=== PATIENT | male | born 1995 | race African-American/Black ===

== ENCOUNTER 2022-12-19 14:23 | Outpatient (AMB) | payer OTHER, SELFPAY ==
[2022-12-19 14:34] VITALS: BP 130/76; PULSE 86; O2SAT 98; BMI 40.2
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
== END 2022-12-19 15:22 | disposition home or self-care (01) ==
PROVIDERS: PCP Nurse Practitioner Family; Visit Provider Nurse Practitioner Family
DX: I82.409 Acute embolism and thrombosis of unspecified deep veins of unspecified lower extremity (principal); Z00.00 Encounter for general adult medical examination without abnormal findings; F41.9 Anxiety disorder, unspecified; F32.A Depression, unspecified
CPT/HCPCS: 99385

== ENCOUNTER 2022-12-21 14:16 | Outpatient (REF) | payer OTHER, SELFPAY ==
--- NOTE | ~2022-12-21 | US_ITS ---
EXAMINATION: US VENOUS ULTRASOUND WITH DOPPLER LOWER EXTREMITY, LEFT CLINICAL INFORMATION: History of DVT. On Eliquis. COMPARISON: None available. TECHNIQUE: Ultrasound of the deep veins is performed from the hip to the calf with compression sonography and color and pulse Doppler assessment. Spectral analysis with color-flow imaging is performed. FINDINGS: There is normal venous compression and respiratory variation and augmented flow. The visualized common iliac vein, external iliac vein, common femoral vein, superficial femoral vein, profunda femoral vein, popliteal vein, and the trifurcation region shows no evidence of deep venous thrombosis. There is no significant popliteal fossa cyst. If the patient's symptoms persist, followup ultrasound in 5 days 7 days might be of value to exclude proximal propagation from a non-visualized calf vein. US/US venous duplex LE IMPRESSION: No DVT demonstrated in the left lower extremity.
[2022-12-21 16:10] LABS: MANUAL DIFF FLAG NO
[2022-12-21 16:17] LABS: Basophils Percent Auto 0.4 % (0-2); Eosinophils Absolute Auto 0.1 X10*3/uL (0.0-0.4); Hemoglobin 15.9 g/dl (14.0-18.0); Imm Gran Abs Auto 0.05 X10*3/uL (0.00-0.03); Imm Gran Pct Auto 0.7 % (0.0-0.4); Lymphocytes Absolute Auto 1.8 X10*3/uL (1.2-4.9); Lymphocytes Percent Auto 26.2 % (20-40); Mean Corpuscular HGB Conc 33.8 g/dl (31.0-36.0); Mean Corpuscular Hemoglobin 28.3 pg (27.0-33.0); Mean Corpuscular Volume 83.8 fL (80.0-98.0); Mean Platelet Volume 12.4 fL (9.4-12.4); Monocytes Absolute Auto 0.4 X10*3/uL (0.1-1.2); Monocytes Percent Auto 6.1 % (2-11); Neutrophils Absolute Auto 4.5 x10*3/uL (2.0-8.3); Neutrophils Percent Auto 65.6 % (45-73); Platelet Count 161 X10*3/uL (160-400); Red Blood Count 5.61 X10*6/uL (4.60-5.80); Red Cell Distribution Width 12.6 % (11.0-16.0); White Blood Count 6.8 X10*3/uL (4.8-10.8)
[2022-12-21 16:35] LABS: Appearance Urine Clear; Color Urine Yellow; Glucose Urine UA Negative (Negative); Leukocyte Esterase Urine Negative (Negative); Nitrite Urine Negative (Negative); Urine Blood Negative (Negative); Urine Ketones Negative (Negative); Urine Protein Negative (Neg-Trace)
[2022-12-21 16:43] LABS: Alanine Aminotransferase 49 U/L (0-40); Albumin Level 4.2 g/dL (3.5-5.0); Alkaline Phosphatase 53 U/L (39-117); Anion Gap 12 (12-20); Aspartate Amino Transferase 28 U/L (5-37); Bilirubin Total 0.9 mg/dL (0.0-1.0); Blood Urea Nitrogen 9 mg/dL (9-16); Calcium 9.4 mg/dL (8.4-10.2); Carbon Dioxide 24 mmol/L (22-29); Chloride 106 mmol/L (96-108); Cholesterol 239 mg/dL (<200); Estimated Glomerular Filt Rate > 60; Glucose Fasting 95 mg/dL (60-99); HDL Cholesterol 49 mg/dL (>40); LDL Cholesterol Calculated 156 mg/dL (<100); Potassium 3.9 mmol/L (3.3-5.1); Sodium 138 mmol/L (135-145); Total Protein 7.5 g/dL (6.5-8.0); Triglycerides 172 mg/dL (<150)
== END 2022-12-21 14:17 | disposition home or self-care (01) ==
LOC: HO.HMGCX 14:16
PROVIDERS: PCP Nurse Practitioner Family; Visit Provider Nurse Practitioner Family
DX: Z00.00 Encounter for general adult medical examination without abnormal findings (principal); I82.402 Acute embolism and thrombosis of unspecified deep veins of left lower extremity; R74.8 Abnormal levels of other serum enzymes; Z79.01 Long term (current) use of anticoagulants; Z13.29 Encounter for screening for other suspected endocrine disorder
CPT/HCPCS: 36415; 80053; 80061; 81003; 84443; 85025; 93971

== ENCOUNTER 2023-01-04 11:24 | Outpatient (REF) | payer OTHER, SELFPAY | END 2023-01-04 11:25 | disposition home or self-care (01) | LOC: HO.HMGCX 11:24 | PROVIDERS: PCP Nurse Practitioner Family; Visit Provider Nurse Practitioner Family | DX: D74.8 Other methemoglobinemias (principal) | CPT/HCPCS: 76700 ==

== ENCOUNTER → 2023-01-17 11:14 | Outpatient (BNV) | payer OTHER, SELFPAY | PROVIDERS: PCP Nurse Practitioner Family; Visit Provider Internal Medicine | DX: I82.422 Acute embolism and thrombosis of left iliac vein (principal) | CPT/HCPCS: 99204 ==

== ENCOUNTER 2023-04-30 07:24 | Outpatient (AMB) | payer OTHER, SELFPAY ==
--- NOTE | 2023-04-30 07:28 | MHC.PC.OV ---
Intake Visit Reasons: med change-Iphone Allergies No Known Allergies Allergy (Verified 01/17/23 11:19) Medication List - Last Reconciled 04/30/23 by ANASTACIA HillP- apixaban (Eliquis) 5 mg PO BID bupropion HCl (Wellbutrin XL) 150 mg PO QAM 30 days sertraline 25 mg PO DAILY 30 days Tobacco use date assessed: 12/19/22 HPI med change-Iphone HPI Details Anxiety/depression: Pt is currently taking sertraline 25mg. He reports that this makes him more anxious. Will have pt taper off of this and start wellbutrin XL 150mg. He is seeing a therapist biweekly. Denies any SI and HI. 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 Zachery Benitez, Jaz Griffiths, Emanuel Hill and colleagues, with an educational ismael from [employer]. Review of Systems Const Reports as per HPI Physical exam (Primary Care) Tobacco/Smoking Status: Tobacco use Status Tobacco use date assessed 12/19/22 04/30/23 07:29 Patient Tobacco Use Status Former Tobacco user 04/30/23 07:29 e-Cigarette/Vaping Use Currently Using 04/30/23 07:29 Thrive Assessment: Date of Thrive Assessment Date Thrive assessed 12/19/22 04/30/23 07:29 Const General: cooperative Orientation/consciousness: patient oriented x3 Neuro General: patient oriented x3 Psych Appearance: grossly normal Mental Status: mental status grossly normal Speech and movement: Clear speech present Affect: normal affect Attitude: cooperative Thought process: Normal thought process present Thought content: Normal thought content present Insight: Good insight present (Psych) Judgement: Good judgement present (Psych) Telehealth Telehealth Location of provider rendering services: practice address Location of patient: address on file Patient Identification confirmed using: Name, : Yes Telehealth method: video Patient verbally consented to treatment: Yes Patient verbally consented to billing insurance company: Yes Patient informed of any privacy concerns related to visit: Yes Minutes spent on Phone/Video with Pt.: 10 Assessment and Plan Assessment & Plan (1) Anxiety and depression: Code(s): F41.9 - Anxiety disorder, unspecified; F32.A - Depression, unspecified Plan: weaning off sertraline, trying wellbutrin XL Plan The patient agreed to the use of a medical unit secretary for this encounter. Scribed for BALJINDER Rea by Alicia Castillo medical unit secretary, on 04/30/2023 at 07:25 EST. Medications: New bupropion HCl (Wellbutrin XL) 150 mg PO QAM 30 tabs 4RF 30 days Coding Level of Care Code Tele Est Pt Level 3 (29873) Diagnoses Anxiety and depression F41.9; F32.A
== END 2023-04-30 08:19 | disposition home or self-care (01) ==
LOC: HO.HMGC 07:24
PROVIDERS: PCP Nurse Practitioner Family; Visit Provider Nurse Practitioner Family
DX: F41.9 Anxiety disorder, unspecified (principal); F32.A Depression, unspecified
CPT/HCPCS: 99213

== ENCOUNTER 2023-12-06 10:10 | Outpatient (AMB) | payer OTHER, SELFPAY ==
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
[2023-12-06 10:13] VITALS: BP 130/78; PULSE 86; O2SAT 99; BMI 40.7
== END 2023-12-06 10:59 | disposition home or self-care (01) ==
PROVIDERS: PCP Nurse Practitioner Family; Visit Provider Nurse Practitioner Family
DX: I82.409 Acute embolism and thrombosis of unspecified deep veins of unspecified lower extremity (principal); F43.10 Post-traumatic stress disorder, unspecified; F41.9 Anxiety disorder, unspecified; F32.A Depression, unspecified
CPT/HCPCS: 99213